=== PATIENT | male | born 1985 | race African-American/Black ===

== ENCOUNTER 2024-08-06 23:26 | Emergency (ER) | payer OTHER ==
[2024-08-06 23:33] VITALS: BP 130/86; PULSE 69; RESP 18; TEMP 97.4; BMI 30.4
== END 2024-08-07 01:56 | disposition home or self-care (01) ==
LOC: JER 23:26
PROC: 0H9AXZZ Drainage of Inguinal Skin, External Approach (ICD-10-PCS; principal; 2024-08-07)
DX: L72.0 Epidermal cyst (principal)
CPT/HCPCS: 99283-25